=== PATIENT | female | born 1955 | race Caucasian/White ===

== ENCOUNTER 2016-12-07 13:15 | Emergency (ER) | payer OTHER ==
[2016-12-07 13:21] VITALS: BMI 19.5
[2016-12-07 13:26] VITALS: BP 106/54; PULSE 67; RESP 19; TEMP 98.2; O2SAT 98
--- NOTE | 2016-12-07 13:40 | ED PDOC ---
Arrival/HPI - General Chief Complaint: ENT Problem Time Seen by Provider: 12/07/16 13:17 Historian: Patient - History of Present Illness Narrative History of Present Illness (Text): 12/07/16 13:38 Diamond Pineda is a 61 year old female who presents to the emergency department complaining of bilateral ear fullness, left worse than right, associated with muffled hearing for past 4 days. Denies any fever, chills , headache, dizziness, chest pain, shortness of breath, nausea, vomiting, urinary symptoms, or any other complaints at this time. Time/Duration: < week (4 days ) Symptom Onset: Gradual Severity Level: Mild Activities at Onset: Light Past Medical History - Provider Review Nursing Documentation Reviewed: Yes - Infectious Disease Hx of Infectious Diseases: None - Tetanus Immunization Tetanus Immunization: Unknown - Reproductive Menopause: Yes - Cardiac Hx Cardiac Disorders: No - Pulmonary Hx Respiratory Disorders: No - Neurological Hx Neurological Disorder: No - HEENT Hx HEENT Disorder: Yes Other/Comment: glasses - Renal Hx Renal Disorder: No - Endocrine/Metabolic Hx Endocrine Disorders: Yes Hx Diabetes Mellitus Type 2: Yes (NIDD) - Hematological/Oncological Hx Cancer: Yes (left breat) - Integumentary Hx Dermatological Disorder: No - Musculoskeletal/Rheumatological Hx Falls: No - Gastrointestinal Hx Gastrointestinal Disorders: No - Genitourinary/Gynecological Hx Genitourinary Disorders: Yes Hx Reproductive Disorders: Yes (left breast CA with lumpectomy and radiation) - Psychiatric Hx Psychophysiologic Disorder: No Hx Depression: No Hx Emotional Abuse: No Hx Physical Abuse: No Hx Substance Use: No - Surgical History Hx Mastectomy: Yes (left breast mastectomy) - Anesthesia Hx Anesthesia: Yes Hx Anesthesia Reactions: No - Suicidal Assessment Feels Threatened In Home Enviroment: No Family/Social History - Physician Review Nursing Documentation Reviewed: Yes Family/Social History: No Known Family HX Smoking Status: Never Smoked Hx Alcohol Use: No Hx Substance Use: No Hx Substance Use Treatment: No Allergies/Home Meds Allergies/Adverse Reactions: Allergies latex Allergy (Verified 12/07/16 13:21) ANAPHYLAXIS seafood Allergy (Uncoded 12/07/16 13:21) ANAPHYLAXIS Home Medications: Home Meds Medication Instructions Recorded Confirmed Anastrozole [Arimidex] 1 mg PO DAILY 12/02/14 12/07/16 MetFORMIN [glucoPHAGE] 500 mg PO DAILY 12/07/16 12/07/16 Physical Exam - Physical Exam Narrative Physical Exam (Text): - Review of Systems Constitutional: Normal. absent: Fatigue, Weight Change, Fevers Eyes: Normal ENT: b/l ear fullness (left worse than right), muffled hearing Respiratory: Normal absent: SOB, Cough, Sputum Cardiovascular: Normal absent: Chest pain, Palpitations, Syncope Gastrointestinal: Normal absent: Abdominal pain, Diarrhea, Nausea, Vomiting Genitourinary: Normal. absent: Dysuria, Frequency, Hematuria Musculoskeletal: Normal. absent: Arthralgias, Back Pain, Neck Pain Skin: Normal Neurological: Normal absent: Focal Weakness Endocrine: Normal Hemo/Lymphatic: Normal Psychiatric: Normal - Physical exam Patient appears age appropriate, speaking full sentences without difficulty - Systems Exam Head: Present: Atraumatic, Normocephalic Pupils: Present: PERRL Extraocular Muscles: Present: EOMI Conjunctiva: Present: Normal Mouth: Present: Moist Mucous Membranes Neck: Present: Normal Range of Motion. No: MIDLINE TENDERNESS, Paraspinal Tenderness, b/l mastoid tenderness, b/l temporal tenderness Respiratory/Chest: Present: Clear to Auscultation, Good Air Exchange. No: Respiratory Distress, Accessory Muscle Use, Tachypneic Cardiovascular: Present: Regular Rate and Rhythm, Normal S1, S2, Peripheral Pulses Present. No: Murmurs Abdomen: Present: Normal Bowel Sounds, No: Tenderness, Peritoneal Signs, Rebound, Guarding, Distention Back: Present: Normal Inspection. No: Midline Tenderness, Paraspinal Tenderness Upper Extremity: Present: Normal Inspection. No: Cyanosis, Edema Lower Extremity: Present: Normal Inspection. No: Edema Neurological: Present: GCS=15, Speech Normal, cranial nerves II through XII fully intact with no cerebellar abnormality, neuro-sensory fully intact. No focal neurological deficits. Skin: Present: Warm, Dry, Normal Color. No: Rashes Lymphatic: Present: OX3, NI, NC Psychiatric: Present: Alert, Oriented x 3, Normal Insight, Normal Concentration Vital Signs Reviewed: Yes Vital Signs Temp Pulse Resp BP Pulse Ox 12/07/16 13:24 98.2 F 67 19 106/54 L 98 Temperature: Afebrile Blood Pressure: Normal Pulse: Regular Respiratory Rate: Normal Appearance: Positive for: Well-Appearing, Non-Toxic, Comfortable Pain Distress: None Mental Status: Positive for: Alert and Oriented X 3 - Systems Exam Ears: Present: NORMAL TM, Normal Canal, TM Bulging, Other (b/l). No: Erythema, Fluid, TM Perf Medical Decision Making ED Course and Treatment: 12/07/16 13:52 Impression: A 61 year old female who presents to the emergency department complaining of bilateral ear fullness associated with muffled hearing for past 4 days. On exam, patient has b/l bulging TMs, non-erythematous. No temporal or mastoid tenderness on palpation. No focal neurological deficits on examination. Progress Notes: Patient is stable for discharge. Will discharge patient home on Mucinex. Advised to follow up with PMD/ENT within few days and return to emergency department for new or worsening symptoms. Pt states she understands to return to the ER right away for new or worsening symptoms or for inability to f/u with PMD or specialist as instructed. Patient states that she fully agrees with and understands discharge instructions. States that she agrees with the plan and disposition. Verbalized and repeated discharge instructions and plan. I have given the patient opportunity to ask any additional questions. - Scribe Statement The provider has reviewed the documentation as recorded by the Scribe Stacie Luis Provider Attestation: Provider Scribe Attestation: All medical record entries made by the Scribe were at my direction and personally dictated by me. I have reviewed the chart and agree that the record accurately reflects my personal performance of the history, physical exam, medical decision making, and the department course for this patient. I have also personally directed, reviewed, and agree with the discharge instructions and disposition. Disposition/Present on Arrival - Present on Arrival Any Indicators Present on Arrival: No History of DVT/PE: No History of Uncontrolled Diabetes: No Urinary Catheter: No History of Decub. Ulcer: No History Surgical Site Infection Following: None - Disposition Have Diagnosis and Disposition been Completed?: Yes Diagnosis: Ear fullness Disposition: HOME/ ROUTINE Disposition Time: 13:37 Patient Plan: Discharge Condition: GOOD Additional Instructions: PLEASE RETURN TO THE EMERGENCY DEPARTMENT FOR NEW OR WORSENING SYMPTOMS. RETURN RIGHT AWAY IF YOU CANNOT FOLLOW UP WITH YOUR PRIMARY CARE DOCTOR, CLINIC, OR SPECIALIST IN 1-2 DAYS. Prescriptions: Guaifenesin/Pseudoephedrne HCl [Mucinex D ER Tablet] 1 each PO BID #[email or web address] Referrals: Raffy Fatima, [[facility]] - Follow up with primary
== END 2016-12-07 14:00 | disposition home or self-care (01) ==
LOC: ED 13:15
DX: H93.8X3 Other specified disorders of ear, bilateral (principal)

== ENCOUNTER 2016-12-24 09:55 | Day surgery (SDC) | payer OTHER ==
[2016-12-24 10:39] VITALS: BMI 19.5
[2016-12-24] MEDS ORDERED: Propofol 10 mg/ml Inj (20 ML) ONE ×2 (12:51→13:21)
[2016-12-24] MEDS ORDERED: Sodium Chloride 0.9% 1,000 ML IV SCH (13:45)
[2016-12-24 15:06] VITALS: BP 140/82; PULSE 65; RESP 19; TEMP 97.7; O2SAT 100
== END 2016-12-24 14:53 | disposition home or self-care (01) ==
LOC: ENDO 09:55
PROVIDERS: ATTEND Internal Medicine Gastroenterology
DX: Z12.11 Encounter for screening for malignant neoplasm of colon (principal); K63.89 Other specified diseases of intestine; C50.919 Malignant neoplasm of unspecified site of unspecified female breast; E11.9 Type 2 diabetes mellitus without complications
CPT/HCPCS: 45380; 82948; 88305; J2001; J2704; J7040; J7120